=== PATIENT | male | born 1980 | race African-American/Black ===

== ENCOUNTER 2017-03-06 06:45 | Emergency (ER) | payer MEDICARE ==
[~2017-03-06] VITALS: Ht 180.3 cm; Wt 97.0 kg
[~2017-03-06 06:45] MED LIST: AMOXICILLIN500 MG OR; FLEXERIL PO; MAXZIDE-2537.5 MG/TA PO; MECLIZINE12.5 M1 PO; NAPROSYN500 MG OR; NO MEDS; PRILOSEC20 MG OR; ROBITUSSIN AC10 ML OR; SB OMEPRAZOLE20 MG PO; ZANTAC150 MG OR
[2017-03-06 08:00] LABS: URINE BILIRUBIN - DIPSTICK NEGATIVE (NEGATIVE); URINE BLOOD DIPSTICK TRACE-INTACT (NEGATIVE); URINE CLARITY CLEAR; URINE COLOR YELLOW; URINE GLUCOSE - DIPSTICK NEGATIVE (NEGATIVE); URINE KETONE NEGATIVE (NEGATIVE); URINE LEUK ESTERASE NEGATIVE (NEGATIVE); URINE NITRITE - DIPSTICK NEGATIVE (Negative); URINE PH 6.5 (4.5-8.0); URINE PROTEIN - DIPSTICK NEGATIVE (NEG-TRACE); URINE SPECIFIC GRAVITY 1.015; URINE UROBILINOGEN - DIPSTICK 0.2 E.U./dL (0.2)
[2017-03-06 08:07] LABS: HEMOGLOBIN 14.6 g/dl (14.0-18.0); IMMATURE GRANULOCYTES 0.3 % (0.0-1.0); MEAN CELL VOLUME 86.2 fL CALC (80.0-100.0); MEAN CORPUSCULAR HGB 29.3 pG CALC (26.0-32.0); NEUT# 1.6 thou/uL (1.82-7.42); RED BLOOD COUNT 4.99 mill/uL (4.70-6.10); RED CELL DISTRI WIDTH 12.4 % (11.5-15.5)
[2017-03-06 08:23] LABS: ANION GAP 15 (6-22 (CALC)); BUN 13 mg/dL (9-20); BUN/CREATININE RATIO 15 (12-20 (CALC)); CALCIUM 9.9 mg/dL (8.4-10.2); CARBON DIOXIDE 27 mmol/l (22-30); CHLORIDE 103 mmol/l (95-108); CREATININE 0.9 mg/dL (0.7-1.3); GFR > 60 ML/MIN (>=60 (CALC)); GFR FOR AFR.AMER. > 60 ML/MIN (>=60 (CALC)); GLUCOSE 94 mg/dL (75-110); POTASSIUM 4.5 mmol/l (3.5-5.1); SODIUM 141 mmol/l (137-146)
[2017-03-06] MEDS ORDERED: MECLIZINE25 MG PO (08:32)
[2017-03-06 08:36] VITALS: BP 134/87
== END 2017-03-06 08:44 | disposition home or self-care (01) ==
LOC: ED 06:45
PROVIDERS: Family Medicine
DX: R42 Dizziness and giddiness (principal); I10 Essential (primary) hypertension; H91.90 Unspecified hearing loss, unspecified ear; H54.42 Blindness, left eye, normal vision right eye

== ENCOUNTER 2018-10-08 15:51 | Emergency (ER) | payer MEDICARE ==
[~2018-10-08 15:51] MED LIST changes: +MECLIZINE25 MG PO
== END 2018-10-08 16:02 | disposition left against medical advice (07) ==
LOC: ED 15:51 → LWOBS 16:02
DX: Z91.19 Patient's noncompliance with other medical treatment and regimen (principal)

== ENCOUNTER 2023-08-08 17:28 | Emergency (ER) | payer MEDICARE ==
[~2023-08-08] VITALS: Ht 180.3 cm; Wt 104.0 kg
[2023-08-08 18:45] LABS: BASO% 0.4 % (0-3); HEMATOCRIT 37.8 % (39.0-50.0); HEMOGLOBIN 12.6 g/dl (14.0-18.0); IMMATURE GRANULOCYTES 0.2 % (0.0-5.0); LYMPH% 55.9 % (15-41); MEAN CELL VOLUME 86.7 fL CALC (80.0-100.0); MEAN CORPUSCULAR HGB 28.9 pG CALC (26.0-32.0); MEAN CORPUSCULAR HGB CONC 33.3 g/dL CAL (32.0-36.0); MONO% 9.1 % (2-13); NEUT# 1.7 thou/uL (1.82-7.42); NEUT% 33.4 % (42-76); RED BLOOD COUNT 4.36 mill/uL (4.70-6.10); RED CELL DISTRI WIDTH 12.7 % (11.5-15.5)
[2023-08-08 19:04] LABS: ALBUMIN 4.7 g/dL (3.2-5.0); ALKALINE PHOSPHATASE 59 u/l (38-126); ANION GAP 11 (6-22 (CALC)); BILIRUBIN, TOTAL 0.7 mg/dL (0.2-1.3); BUN 15 mg/dL (9-20); BUN/CREATININE RATIO 12 (12-20 (CALC)); CARBON DIOXIDE 25 mmol/l (22-30); CHLORIDE 110 mmol/l (95-108); CREATININE 1.2 mg/dL (0.7-1.3); GFR FOR AFR.AMER. > 60 ML/MIN (>=60 (CALC)); GFR OTHER RACES > 60 ML/MIN (>=60 (CALC)); SGOT/AST 36 u/l (17-59); SODIUM 142 mmol/l (137-146); TOTAL PROTEIN 7.8 g/dL (6.3-8.2)
[2023-08-08 19:22] VITALS: BP 114/76
[2023-08-08 19:30] VITALS: BP 115/78
[2023-08-08 19:45] VITALS: BP 128/84
[2023-08-08 20:00] VITALS: BP 123/82
[2023-08-08 20:15] VITALS: BP 120/93
[2023-08-08 21:12] VITALS: BP 120/93
== END 2023-08-08 21:23 | disposition home or self-care (01) ==
LOC: ED 17:28
PROVIDERS: Family Medicine
DX: R20.2 Paresthesia of skin (principal); I10 Essential (primary) hypertension; H91.90 Unspecified hearing loss, unspecified ear; K21.9 Gastro-esophageal reflux disease without esophagitis

== ENCOUNTER 2024-01-27 08:59 | Emergency (ER) | payer MEDICARE ==
[~2024-01-27] VITALS: Ht 180.3 cm; Wt 117.0 kg
[2024-01-27 09:06] VITALS: BP 110/70
[2024-01-27 09:15] VITALS: BP 105/81
[2024-01-27] MEDS ORDERED: OFLOXACIN0.3 % AD (09:15)
[2024-01-27 09:31] VITALS: BP 111/89
== END 2024-01-27 09:29 | disposition home or self-care (01) ==
LOC: ED 08:59
DX: H60.91 Unspecified otitis externa, right ear (principal); I10 Essential (primary) hypertension; K21.9 Gastro-esophageal reflux disease without esophagitis; H91.90 Unspecified hearing loss, unspecified ear